=== PATIENT | male | born 1995 | race Caucasian/White ===

== ENCOUNTER 2021-09-07 17:44 | Emergency (ER) | payer OTHER ==
[~2021-09-07] VITALS: Ht 182.9 cm; Wt 127.0 kg
[2021-09-07 18:03] VITALS: BP 170/100
[2021-09-07 19:56] LABS: BASOPHILS # (AUTO) 0.1 K/uL (0.00-0.22); BASOPHILS % (AUTO) 0.6 % (0.0-2.0); EOSINOPHILS # (AUTO) 0.1 K/uL (0-0.4); EOSINOPHILS % (AUTO) 1.4 % (0.0-4.0); HEMATOCRIT 48.9 % (36-52); HEMOGLOBIN 16.7 g/dL (12.0-18.0); LYMPHOCYTES # (AUTO) 1.8 K/uL (2.0-11.5); LYMPHOCYTES % (AUTO) 19.3 % (20.5-51.1); MEAN CORPUSCULAR HEMOGLOBIN 28 pg (27-31); MEAN CORPUSCULAR HGB CONC 34 g/dL (33-37); MEAN CORPUSCULAR VOLUME 81.1 fL (80-94); MONOCYTES # (AUTO) 0.7 K/uL (0.8-1.0); MONOCYTES % (AUTO) 7.6 % (1.7-9.3); NEUTROPHILS # (AUTO) 6.7 K/uL (1.8-7.7); NEUTROPHILS % (AUTO) 71.1 % (42.2-75.2); PLATELET COUNT (AUTO) 371 K/uL (140-450); RED BLOOD CELL COUNT(AUTO) 6.03 MIL/uL (4.20-6.10); RED CELL DISTRIBUTION WIDTH 13.4 % (11.6-13.7); WHITE BLOOD COUNT (AUTO) 9.4 K/uL (4.8-10.8)
[2021-09-07 20:10] LABS: ANION GAP 14.9 (8-16); CARBON DIOXIDE 26.8 mmol/L (21-32); POTASSIUM 3.7 mmol/L (3.5-5.1); TOTAL BILIRUBIN 0.5 mg/dL (0.0-1.0)
--- NOTE | 2021-09-07 21:09 | NUR ---
PT TAKEN TO BED 6
[2021-09-07 22:24] VITALS: BP 128/72
--- NOTE | 2021-09-07 22:29 | NUR ---
PATIENT DC HOME STABLE NOT COMPLAINING OF PAIN AT THIS TIME VITAL SIGNS IN NORMAL LIMITS WE RECOMMENDED TO FOLLOW UP WTH PCP OR COMING BACK TO EMERGENCY DEPARTMENT IF THE SYMPTOMSS GET WORSE OR DOESNT IMPROVING //Amina DELGADO
== END 2021-09-07 22:29 | disposition home or self-care (01) ==
LOC: MED 17:44
DX: F41.9 Anxiety disorder, unspecified (principal); R07.2 Precordial pain
CPT/HCPCS: 36415; 71045; 80053; 83880; 84484; 85025; 93005; 99285

== ENCOUNTER 2022-02-14 20:12 | Emergency (ER) | payer OTHER ==
[~2022-02-14] VITALS: Ht 182.9 cm; Wt 132.9 kg
[2022-02-14 20:19] VITALS: BP_SYST 125; BP_SYST 126; BP_DIAS 77
--- NOTE | 2022-02-14 20:23 | NUR ---
PT AMBULATED TO BED WITH STEADY GAIT.
--- NOTE | 2022-02-14 20:29 | NUR ---
26 yo/m presents to ED w c/o ruq abdominal pain 6/10 dull non-rad int x1 week, + R side groin pain sharp 5/10 int, non-rad x2 days, + diarrhea. Pt denies any fever/chills, n/v, blood in stool or urinary problems. pmh: denies allergies: denies
[2022-02-14 20:55] LABS: BASOPHILS # (AUTO) 0.1 K/uL (0.00-0.22); EOSINOPHILS # (AUTO) 0.2 K/uL (0-0.4); EOSINOPHILS % (AUTO) 2.3 % (0.0-4.0); HEMATOCRIT 50.2 % (36-52); HEMOGLOBIN 16.9 g/dL (12.0-18.0); LYMPHOCYTES # (AUTO) 2.1 K/uL (2.0-11.5); LYMPHOCYTES % (AUTO) 20.7 % (20.5-51.1); MEAN CORPUSCULAR HEMOGLOBIN 27 pg (27-31); MEAN CORPUSCULAR HGB CONC 34 g/dL (33-37); MEAN CORPUSCULAR VOLUME 81.4 fL (80-94); MONOCYTES # (AUTO) 0.7 K/uL (0.8-1.0); MONOCYTES % (AUTO) 7.1 % (1.7-9.3); NEUTROPHILS % (AUTO) 68.9 % (42.2-75.2); PLATELET COUNT (AUTO) 387 K/uL (140-450); RED BLOOD CELL COUNT(AUTO) 6.16 MIL/uL (4.20-6.10); RED CELL DISTRIBUTION WIDTH 13.5 % (11.6-13.7); WHITE BLOOD COUNT (AUTO) 10.2 K/uL (4.8-10.8)
[2022-02-14 21:12] LABS: APPEARANCE,URINE CLEAR (CLEAR); BILIRUBIN,URINE 1+ (NEGATIVE); BLOOD, URINE TRACE-I (NEGATIVE); COLOR,URINE YELLOW (YELLOW); LEUKOCYTE ESTERASE ,URINE NEGATIVE (NEGATIVE); NITRITE, URINE NEGATIVE (NEGATIVE); PH,URINE 5.5 (5.0-9.0); UGLUCOSE NEGATIVE (NEGATIVE)
[2022-02-14 21:14] LABS: RBC,URINE 0-5 /HPF (0-5); WBC,URINE NONE SEEN /HPF (0-5)
[2022-02-14 21:17] LABS: ANION GAP 11.4 (8-16); CARBON DIOXIDE 26.3 mmol/L (21-32); POTASSIUM 3.7 mmol/L (3.5-5.1)
[2022-02-14 21:18] LABS: ALBUMIN 3.9 g/dL (3.4-5.0); TOTAL BILIRUBIN 0.3 mg/dL (0.0-1.0)
--- NOTE | 2022-02-14 21:47 | NUR ---
PT O2 SAT FLUCTUATING 88%-96% ERMD AND RT RUTHANN AWARE.
[2022-02-14] MEDS ORDERED: FAMO-90 PO (21:56)
[2022-02-14 22:48] VITALS: BP 150/77
--- NOTE | 2022-02-14 22:48 | NUR ---
Patient discharged. Written and verbal after care instructions given and explained. Patient verbalized understanding. Ambulatory with steady gait. ID band removed. All questions addressed prior to discharge. Advised to follow up with PMD.
== END 2022-02-14 22:48 | disposition home or self-care (01) ==
LOC: MED 20:12
DX: R10.9 Unspecified abdominal pain (principal); M54.9 Dorsalgia, unspecified; R19.7 Diarrhea, unspecified; Z79.899 Other long term (current) drug therapy
CPT/HCPCS: 36415; 80053; 81001; 82150; 83690; 85025; 99283

== ENCOUNTER 2023-03-31 16:35 | Emergency (ER) | payer OTHER ==
[~2023-03-31] VITALS: Ht 180.3 cm; Wt 120.2 kg
[~2023-03-31 16:35] MED LIST: FAMO-90 PO
[2023-03-31 16:51] VITALS: BP 159/101
--- NOTE | 2023-03-31 16:53 | NUR ---
pt ambulatory to [facility] w steady gait.
--- NOTE | 2023-03-31 17:10 | NUR ---
PATIENT PRESENTS TO ED WITH ABD PAIN. DENIES N/V/D; SKIN IS PINK/WARM/DRY; AAOX4 WITH EVEN AND STEADY GAIT; LUNGS CLEAR BL; HR EVEN AND REGULAR; PT DENIES ANY FEVER, CP, SOB, OR COUGH AT THIS TIME; PATIENT STATES PAIN OF 8/10 AT THIS TIME; VSS; PATIENT POSITIONED FOR COMFORT; HOB ELEVATED; BEDRAILS UP X2; BED DOWN. ER MD MADE AWARE OF PT STATUS.
[2023-03-31] MEDS ORDERED: IBUP-2213 PO (18:46)
[2023-03-31 19:17] VITALS: BP 159/101
--- NOTE | 2023-03-31 19:25 | NUR ---
Patient discharged with v/s stable. Written and verbal after care instructions given and explained. Patient verbalized understanding. PT has been advised to follow up with primary care physician for outpatient ultrasound. Ambulatory with steady gait. All questions addressed prior to discharge. Advised to follow up with PMD. Per providers orders pt is cleared for discharge.
== END 2023-03-31 19:25 | disposition home or self-care (01) ==
LOC: MED 16:35
DX: R10.11 Right upper quadrant pain (principal); F17.200 Nicotine dependence, unspecified, uncomplicated; Z79.899 Other long term (current) drug therapy; Z98.890 Other specified postprocedural states
CPT/HCPCS: 99281